=== PATIENT | male | born 1940 | race Caucasian/White ===

== ENCOUNTER 2017-11-03 14:37 | Emergency (ER) | payer MEDICARE, BC ==
[2017-11-03] MEDS ORDERED: LIDOCAINE VISC 2% 200MG/10ML UD MM ONE (14:58)
--- NOTE | 2017-11-03 16:54 | Emergency Department Record ---
History of Present Illness - General Chief complaint: Nosebleed/epistaxis Stated complaint: NOSE BLEED Time Seen by Provider: 11/03/17 14:58 Source: Patient Mode of Arrival: Ambulatory Limitations: No limitations - History of Present Illness Initial comments: pt had a nosebleed that has now stopped complaint: Other (epistaxis) Onset/Timin -: Hour(s) Location: Nose Severity: Moderate Improves with: None Worsens with: None - Related Data Home Medications Medication Instructions Recorded Confirmed Last Taken Metoprolol Succinate [Toprol Xl] 25 mg PO DAILY 11/03/17 11/03/17 Unknown Allergies Allergy/AdvReac Type Severity Reaction Status Date / Time hydrocodone bitartrate AdvReac Intermediate BEHAVIORAL Verified 11/03/17 14:49 [From Vicodin] CHANGES Travel Screening - Travel/Exposure Within Last 30 Days Have you traveled within the last 30 days?: No Review of Systems Reviewed: No additional complaints except as noted below Constitutional: Reports: As per HPI. Denies: Chills, Fever, Malaise, Night sweats, Weakness, Weight change Eyes: Reports: As per HPI. Denies: Eye discharge, Eye pain, Photophobia, Vision change ENT: Reports: As per HPI. Denies: Congestion, Dental pain, Ear pain, Epistaxis , Hearing loss, Throat pain Respiratory: Reports: As per HPI. Denies: Cough, Dyspnea, Hemoptysis, Stridor, Wheezes Cardiovascular: Reports: As per HPI. Denies: Arrhythmia, Chest pain, Dyspnea on exertion, Edema, Murmurs, Orthopnea, Palpitations, Paroxysmal nocturnal dyspnea, Rheumatic Fever, Syncope Endocrine: Reports: As per HPI. Denies: Fatigue, Heat or cold intolerance, Polydipsia, Polyuria Gastrointestinal: Reports: As per HPI. Denies: Abdominal pain, Constipation, Diarrhea, Hematemesis, Hematochezia, Melena, Nausea, Vomiting Genitourinary: Reports: As per HPI. Denies: Dysuria, Frequency, Hematuria, Incontinence, Retention, Testicular pain, Testicular mass, Urgency Musculoskeletal: Reports: As per HPI. Denies: Arthralgia, Back pain, Gout, Joint swelling, Myalgia, Neck pain Skin: Reports: As per HPI. Denies: Bruising, Change in color, Change in hair/ nails, Lesions, Pruritus, Rash Neurological: Reports: As per HPI. Denies: Abnormal gait, Confusion, Headache, Numbness, Paresthesias, Seizure, Tingling, Tremors, Vertigo, Weakness Psychiatric: Reports: As per HPI. Denies: Anxiety, Auditory hallucinations, Depression, Homicidal thoughts, Suicidal thoughts, Visual hallucinations Hematological/Lymphatic: Reports: As per HPI. Denies: Anemia, Blood Clots, Easy bleeding, Easy bruising, Swollen glands Past Medical History - SOCIAL HISTORY Smoking Status: Former smoker Alcohol Use: None Drug Use: None - RESPIRATORY Hx Respiratory Disorders: No - CARDIOVASCULAR Hx Cardio Disorders: Yes Hx Hypertension: Yes Comment:: high cholesterol - NEURO Hx Neuro Disorders: No - GI Hx GI Disorders: Yes Comment:: gastroporesis - Hx Genitourinary Disorders: Yes Hx Kidney Stones: Yes - ENDOCRINE Hx Endocrine Disorders: No Hx Diabetes: No Hx Thyroid Disease: No - MUSCULOSKELETAL Hx Musculoskeletal Disorders: No - PSYCH Hx Psych Problems: No - HEMATOLOGY/ONCOLOGY Hx Hematology/Oncology Disorders: No Family Medical History Any Significant Family History?: Yes Hx Cancer: Mother, Brother/Sister Hx Diabetes: Brother/Sister Hx Stroke: Father, Brother/Sister Physical Exam - General General Appearance: Alert, Oriented x3, Cooperative, Mild distress - Head Head exam: Normal inspection - Eye Eye exam: Normal appearance, PERRL, EOMI Pupils: Normal accommodation - ENT ENT exam: Normal exam, Mucous membranes moist, Normal external ear exam, Normal orophraynx Ear exam: Normal external inspection. negative: External canal tenderness Nasal Exam: Discharge, Dried blood. negative: Sinus tenderness Mouth exam: Normal external inspection, Tongue normal Teeth exam: Normal inspection. negative: Dental caries Throat exam: Normal inspection. negative: Tonsillar erythema, Tonsillar exudate - Neck Neck exam: Normal inspection, Full ROM. negative: Tenderness - Respiratory Respiratory exam: Normal lung sounds bilaterally. negative: Respiratory distress - Cardiovascular Cardiovascular Exam: Regular rate, Normal rhythm, Normal heart sounds - GI/Abdominal GI/Abdominal exam: Soft, Normal bowel sounds. negative: Tenderness - Rectal Rectal exam: Deferred - exam: Deferred - Extremities Extremities exam: Normal inspection, Full ROM, Normal capillary refill. negative: Tenderness - Back Back exam: Reports: Normal inspection, Full ROM. Denies: Muscle spasm, Rash noted, Tenderness - Neurological Neurological exam: Alert, CN II-XII intact, Normal gait, Oriented X3 - Psychiatric Psychiatric exam: Normal affect, Normal mood - Skin Skin exam: Dry, Intact, Normal color, Warm Course Vital Signs 11/03/17 14:47 Temperature 98.2 F Pulse Rate 70 Respiratory 20 Rate Blood Pressure 129/87 Pulse Ox 96 - Reevaluation(s) Reevaluation #1: 11/03/17 16:57 bleeding point in kisselbachs plexus cauterized w silver nitrate Disposition Disposition: Discharge Clinical Impression: Anterior epistaxis Disposition: Home, Self-Care Condition: (1) Good Instructions: Nosebleed (ED) Additional Instructions: follow up with family doctor. return sooner if worse. do not pick or blow nose. humidify house. Quality - Quality Measures Quality Measures: N/A - Blood Pressure Screening Does Patient Have Any of the Following: No Blood Pressure Classification: Pre-Hypertensive BP Reading Systolic Measurement: 129 Diastolic Measurement: 87 Screening for High Blood Pressure: < Pre-Hypertensive BP, F/U Documented > [ G8950] Pre-Hypertensive Follow-up Interventions: Follow-up with rescreen every year.
== END 2017-11-03 17:16 | disposition home or self-care (01) ==
LOC: ER 14:37
DX: R04.0 Epistaxis (principal)
CPT/HCPCS: 30901; 99283

== ENCOUNTER 2017-11-06 18:15 | Emergency (ER) | payer MEDICARE, BC ==
[2017-11-06] MEDS ORDERED: TOPICAL LIDOCAINE W/ EPI 5 ML TOP ONE (18:41)
--- NOTE | 2017-11-06 18:47 | Emergency Department Record ---
History of Present Illness - General Chief complaint: Nosebleed/epistaxis Stated complaint: NOSE BLEED Time Seen by Provider: 11/06/17 18:41 Source: Patient Mode of Arrival: Ambulatory Limitations: No limitations - History of Present Illness Initial comments: 77 yo male presents with left sided nose bleed. The patient had the left side cauterized on Monday in the ER. No packing was placed. No anticoagulation currently. The bleeding returned about 6pm today. No other current symptoms. MD complaint: Epistaxis Onset/Timin -: Minutes(s) Location: Nose Severity: Moderate Consistency: Intermittent Improves with: None Worsens with: None - Related Data Previous Rx's Medication Instructions Recorded Cephalexin [Keflex] 500 mg PO TID #9 cap 11/06/17 Allergies Allergy/AdvReac Type Severity Reaction Status Date / Time hydrocodone bitartrate AdvReac Intermediate BEHAVIORAL Verified 11/06/17 18:30 [From Vicodin] CHANGES Travel Screening - Travel/Exposure Within Last 30 Days Have you traveled within the last 30 days?: No Review of Systems Constitutional: Denies: Chills, Fever, Malaise, Weakness Eyes: Denies: Eye discharge ENT: Reports: Epistaxis. Denies: Congestion, Dental pain, Ear pain, Hearing loss, Throat pain Respiratory: Denies: Cough, Dyspnea Cardiovascular: Denies: Chest pain, Syncope Endocrine: Denies: Fatigue Gastrointestinal: Denies: Abdominal pain, Diarrhea, Nausea, Vomiting Genitourinary: Denies: Dysuria, Frequency, Hematuria Musculoskeletal: Denies: Arthralgia, Back pain, Myalgia Skin: Denies: Bruising, Change in color, Rash Neurological: Denies: Confusion, Headache, Weakness Psychiatric: Denies: Anxiety Hematological/Lymphatic: Denies: Blood Clots, Easy bleeding, Easy bruising, Swollen glands Past Medical History - SOCIAL HISTORY Smoking Status: Former smoker Alcohol Use: None Drug Use: None - RESPIRATORY Hx Respiratory Disorders: No - CARDIOVASCULAR Hx Cardio Disorders: Yes Hx Hypertension: Yes Comment:: high cholesterol - NEURO Hx Neuro Disorders: No - GI Hx GI Disorders: Yes Comment:: gastroporesis - Hx Genitourinary Disorders: Yes Hx Kidney Stones: Yes - ENDOCRINE Hx Endocrine Disorders: No Hx Diabetes: No Hx Thyroid Disease: No - MUSCULOSKELETAL Hx Musculoskeletal Disorders: No - PSYCH Hx Psych Problems: No - HEMATOLOGY/ONCOLOGY Hx Hematology/Oncology Disorders: No Family Medical History Any Significant Family History?: Yes Hx Cancer: Mother, Brother/Sister Hx Diabetes: Brother/Sister Hx Stroke: Father, Brother/Sister Physical Exam - General General Appearance: Alert, Oriented x3, Cooperative, No acute distress Limitations: No limitations - Head Head exam: Normal inspection - Eye Eye exam: Normal appearance, PERRL. negative: Periorbital swelling, Scleral icterus - ENT ENT exam: Mucous membranes moist, Normal orophraynx Ear exam: Normal external inspection Nasal Exam: Active bleeding (minimal), Dried blood Mouth exam: Normal external inspection Teeth exam: Normal inspection - Neck Neck exam: Normal inspection, Full ROM. negative: Tenderness - Respiratory Respiratory exam: Normal lung sounds bilaterally. negative: Respiratory distress - Cardiovascular Cardiovascular Exam: Regular rate, Normal rhythm, Normal heart sounds - GI/Abdominal GI/Abdominal exam: Soft - Rectal Rectal exam: Deferred - exam: Deferred - Neurological Neurological exam: Alert, Oriented X3 - Psychiatric Psychiatric exam: Normal affect, Normal mood - Skin Skin exam: Dry, Intact, Normal color, Warm Course Vital Signs 11/06/17 18:28 Temperature 97.8 F Pulse Rate 64 Respiratory 18 Rate Blood Pressure 149/75 Pulse Ox 95 - Reevaluation(s) Reevaluation #1: The left nostril was examined Minimal bleeding with some dry blood TLE with soaked cotton placed with no bleeding 11/06/17 18:58 11/06/17 19:20 The TLE was revoved A 4cm Merocel sponge was placed without bleeding He tolerated this well DC to follow up tomorrow with his PCP Recommend ENT follow up given he recurrent bleeding Disposition Disposition: Discharge Clinical Impression: Anterior epistaxis Disposition: Home, Self-Care Condition: (1) Good Instructions: Nosebleed (ED) Additional Instructions: Follow up tomorrow as schedule with your doctor Discuss and ENt follow up for the recurrent bleeding Return if you have pain, bleeding or short of breath or any new concerns. The packing should be removed in 3-4 days Prescriptions: Cephalexin [Keflex] 500 mg PO TID #9 cap Forms: Patient Portal Access Time of Disposition: 19:21 Quality - Quality Measures Quality Measures: N/A - Blood Pressure Screening Does Patient Have Any of the Following: No Blood Pressure Classification: Hypertensive Reading Systolic Measurement: 149 Diastolic Measurement: 75 Screening for High Blood Pressure: < Pre-Hypertensive BP, F/U Documented > [ G8950] Pre-Hypertensive Follow-up Interventions: Referral to alternative/primary care provider.
[2017-11-06] MEDS ORDERED: CEPHALEXIN 500 MG CAPSULE PO STA (19:21)
== END 2017-11-06 19:31 | disposition home or self-care (01) ==
LOC: ER 18:15
DX: R04.0 Epistaxis (principal); I10 Essential (primary) hypertension; Z87.891 Personal history of nicotine dependence
CPT/HCPCS: 30901; 99283

== ENCOUNTER 2017-11-07 18:16 | Observation (INO) | payer MEDICARE, BC ==
--- NOTE | 2017-11-07 19:06 | Emergency Department Record ---
History of Present Illness - General Stated complaint: NOSE BLEED Time Seen by Provider: 11/07/17 19:01 Source: Patient Mode of Arrival: Ambulatory Limitations: No limitations - History of Present Illness Initial comments: 77 yo male returns to ED for evaluation of recurrent epistaxis symptoms following cautery 4 days ago and anterior packing placed last night. Patient reports that he riggs to have bleeding into the posterior pharynx this evening but his bleeding has now stopped. Patient denies bleeding anteriorly from the packing, denies fevers, chills, or recent illness. Patient denies the use of anticoagulation medications, and reports that he is currently taking antibiotics while his packing is in place. MD complaint: Epistaxis Onset/Timin -: Days(s) Severity: Mild Consistency: Intermittent Improves with: Other (pinching of the nose) Worsens with: None - Related Data Previous Rx's Medication Instructions Recorded Cephalexin [Keflex] 500 mg PO TID #9 cap 11/06/17 Allergies Allergy/AdvReac Type Severity Reaction Status Date / Time hydrocodone bitartrate AdvReac Intermediate BEHAVIORAL Verified 11/06/17 18:30 [From Vicodin] CHANGES Review of Systems Constitutional: Denies: Chills, Fever, Malaise, Night sweats Eyes: Denies: Eye discharge, Eye pain ENT: Reports: Epistaxis. Denies: Congestion Respiratory: Denies: Cough, Dyspnea Cardiovascular: Denies: Chest pain, Dyspnea on exertion Endocrine: Denies: Fatigue, Heat or cold intolerance Gastrointestinal: Denies: Abdominal pain, Constipation, Vomiting Genitourinary: Denies: Incontinence, Retention Musculoskeletal: Denies: Arthralgia, Back pain, Gout, Joint swelling Skin: Denies: Bruising, Change in color Neurological: Denies: Abnormal gait, Confusion, Headache, Tingling Psychiatric: Denies: Anxiety Hematological/Lymphatic: Denies: Anemia, Blood Clots Past Medical History - SOCIAL HISTORY Smoking Status: Former smoker Drug Use: None - RESPIRATORY Hx Respiratory Disorders: No - CARDIOVASCULAR Hx Cardio Disorders: Yes Hx Hypertension: Yes Comment:: high cholesterol - NEURO Hx Neuro Disorders: No - GI Hx GI Disorders: Yes Comment:: gastroporesis - Hx Genitourinary Disorders: Yes Hx Kidney Stones: Yes - ENDOCRINE Hx Endocrine Disorders: No Hx Diabetes: No Hx Thyroid Disease: No - MUSCULOSKELETAL Hx Musculoskeletal Disorders: No - PSYCH Hx Psych Problems: No - HEMATOLOGY/ONCOLOGY Hx Hematology/Oncology Disorders: No Family Medical History Hx Cancer: Mother, Brother/Sister Hx Diabetes: Brother/Sister Hx Stroke: Father, Brother/Sister Physical Exam - General General Appearance: Alert, Oriented x3, Cooperative, No acute distress Limitations: No limitations - Head Head exam: Atraumatic, Normocephalic, Normal inspection Head exam detail: negative: Abrasion, Contusion, Nguyen's sign, General tenderness, Hematoma, Laceration - Eye Eye exam: Normal appearance. negative: Conjunctival injection, Periorbital swelling, Periorbital tenderness, Scleral icterus - ENT Ear exam: negative: Auricular hematoma, Auricular trauma Nasal Exam: Other (packing in place to the left nare without active bleeding, mild dried blood to the posterior pharynx on examination.). negative: Active bleeding, Discharge, Dried blood, Foreign body Mouth exam: Tongue normal. negative: Drooling, Laceration, Muffled voice, Tongue elevation - Neck Neck exam: Normal inspection. negative: Meningismus, Tenderness - Respiratory Respiratory exam: Normal lung sounds bilaterally. negative: Respiratory distress, Rhonchi, Stridor, Wheezes - Cardiovascular Cardiovascular Exam: Regular rate, Normal rhythm, Normal heart sounds - GI/Abdominal GI/Abdominal exam: Soft. negative: Rebound, Rigid, Tenderness - Rectal Rectal exam: Deferred - exam: Deferred - Extremities Extremities exam: Normal inspection. negative: Pedal edema, Tenderness - Back Back exam: Denies: CVA tenderness (R), CVA tenderness (L) - Neurological Neurological exam: Alert, Normal gait, Oriented X3 - Psychiatric Psychiatric exam: Normal affect, Normal mood - Skin Skin exam: Normal color. negative: Abrasion Type of lesion: negative: abrasion Course - Reevaluation(s) Reevaluation #1: 11/07/17 19:04 Patient was seen and examined, anterior packing is in place with no active bleeding present. Offered to remove his packing and place balloon pack in place , patient declined as this form of packing is likely to be less comfortable than his current packing. Will observe in ED for recurrent bleeding symptoms. Reevaluation #2: 11/07/17 19:47 Patient reassessed, reports that his bleeding is continuing intermittently. Balloon packing placed, and following discussion with the patient, will admit for observation with consultation with Dr. Valadez in the morning. Procedure Note: Previous anterior packing was removed without complications, bleeding still present to the septum right nare, balloon packing was inserted using surgilube without complications. Balloon was inflated to 3 mL as the patient was uncomfortable with nay further inflation. Reevaluation #3: 11/07/17 20:16 Case was discussed with Homa Dickinson, will accept admission at this time. Medical Decision Making - Lab Data Result diagrams: 11/07/17 20:00 11/07/17 20:00 Disposition Disposition: Admit Clinical Impression: Anterior epistaxis Disposition: Still a Patient at [facility] Decision to Admit: Admit from ER Decision to Admit Date: 11/07/17 Decision to Admit Time: 19:47 Condition: (2) Stable Time of Disposition: 19:47 Quality - Quality Measures Quality Measures: N/A - Blood Pressure Screening Does Patient Have Any of the Following: Active Dx of HTN Blood Pressure Classification: Hypertensive Reading Systolic Measurement: 162 Diastolic Measurement: 91 Screening for High Blood Pressure: Patient Exclusion, Hx of HTN [G9744]
[2017-11-07] MEDS ORDERED: MORPHINE SULFATE 5 MG/ML PFS IVP ONE ×2 (19:46)
[2017-11-07] MEDS ORDERED: ONDANSETRON HCL IV 4 MG/2 ML VIAL IVP ONE ×2 (19:46)
[2017-11-07 20:08] LABS: HEMATOCRIT 39.9 % (42.0-52.0); HEMOGLOBIN 13.7 gm/dl (14.0-18.0); MEAN CELL VOLUME 89.5 fl (81-97); MEAN CORPUSCULAR HEMOGLOBIN 30.7 pg (27-33); MEAN CORPUSCULAR HGB CONC 34.3 g/dl (32-36); MEAN PLATELET VOLUME 10.3 fl (7.4-10.4); PLATELET COUNT 182 K/uL (130-400); RED BLOOD COUNT 4.46 M/uL (4.40-5.70); RED CELL DISTRIBUTION WIDTH 12.8 % (11.5-14.5); WHITE BLOOD COUNT W/O DIFF 8.1 K/uL (4.2-12.2)
[2017-11-07 20:21] LABS: BLOOD UREA NITROGEN 22 mg/dL (8-23); CREATININE 1.1 mg/dL (0.7-1.2); EST GLOMERULAR FILTRATION RATE > 60 mL/min
[2017-11-07 20:22] LABS: TOTAL PROTEIN 7.2 g/dL (6.6-8.7)
[2017-11-07 20:23] LABS: GLUCOSE,RANDOM 153 mg/dL (74-109)
[2017-11-07 20:26] LABS: ALB/GLOB RATIO 1.7 (1.1-1.8); ALBUMIN 4.5 g/dL (4.0-5.0); ALKALINE PHOSPHATASE 61 U/L (40-129); ALT/SGPT 16 U/L (<41); AST/SGOT 20 U/L (10.0-50.0)
[2017-11-07] MEDS ORDERED: 0.9 % SODIUM CHLORIDE 1000ML 1,000 ML IV PRN (21:13)
[2017-11-07] MEDS ORDERED: ONDANSETRON HCL IV 4 MG/2 ML VIAL IVP PRN (21:13)
[2017-11-07] MEDS ORDERED: TRANEXAMIC ACID 1,000 MG/10 ML ML TOP ONE (21:29)
[2017-11-07] MEDS: CEPHALEXIN 500 MG CAPSULE PO SCH (21:51)
[2017-11-07] MEDS ORDERED: SIMVASTATIN 20 MG TABLET PO SCH (22:00)
[2017-11-08] MEDS: MORPHINE SULFATE 5 MG/ML PFS IVP PRN ×2 (06:26→10:47)
[2017-11-08] MEDS ORDERED: PANTOPRAZOLE SODIUM 40 MG TABLET PO SCH (07:00)
[2017-11-08] MEDS ORDERED: METOPROLOL SUCC 25 MG TAB.ER PO SCH (10:00)
[2017-11-08] MEDS ORDERED: ASPIRIN 81 MG CHEWABLE TABLET PO SCH (10:00)
[2017-11-08] MEDS ORDERED: LISINOPRIL 20 MG TABLET PO SCH (10:00)
[2017-11-08] MEDS ORDERED: ALLOPURINOL 100 MG TAB PO SCH (10:00)
--- NOTE | 2017-11-08 10:28 | History & Physical ---
History of Present Illness - Date of Service Date of Service for History & Physical: 11/08/17 - History of Present Illness Admitting Diagnosis: Anterior epistaxis-recurrent History of Present Illness: 77yo male with CC of recurrent nose bleeds. He has a history of HTN, high cholesterol, kidney stones and was a former smoker. Patient has been to the [facility] ED 3 times now for recurrent nosebleeds. His first visit on 11/03 he was diagnosed with left anterior bleed which was cauterized with silver nitrate and had successful coagulation. He had recurrence of the nose bleed on 11/06 and had merocel sponge placed and was started on keflex 500mg po tid. He says he went home that night and noted the bleeding started back up so he returned. While in the ED last night, patient was noted to have left sided anterior bleed. Merocel sponge was in place. This was removed and balloon pack inflated to 3ml was placed and bleeding was stopped. His hgb was 13.7. He was admitted for observation with ENT, Dr. Valadez, was consulted. 11/08/17- Patient reports that he has not had any further bleeding from his nose since the balloon pack was placed last evening. He denies taking any prescription blood thinners but does take a baby aspirin daily and sometimes takes otc pain relievers. He is not sure if they are NSAIDs or tylenol. He says prior to these episodes he has not had any issues with nosebleeds. He denies recent trauma, use of nasal sprays. He had turned his furnace on but did not have the humidifier on when this started. He has since turned that on and purchased an additional humidifier for his bedroom. He says that his blood pressure has been well controlled. His only other active problem is cataracts which he is scheduled to have surgery on in 2 weeks. He is a [employer] and has had several performances this month. pcp: [facility] Travel Screening - Travel/Exposure Within Last 30 Days Have you traveled within the last 30 days?: Yes Location Detail:: [place] - Travel/Exposure Within Last Year Have you traveled outside the [place] in the last year?: No - Additonal Travel Details Have you been exposed to anyone with a communicable illness?: No - Travel Symptoms Symptom Screening: None Review of Systems Constitutional: Denies: Chills, Fever, Malaise, Night sweats Eyes: Denies: Eye discharge, Eye pain ENT: Reports: Epistaxis. Denies: Congestion Respiratory: Denies: Cough, Dyspnea Cardiovascular: Denies: Chest pain, Dyspnea on exertion Endocrine: Denies: Fatigue, Heat or cold intolerance Gastrointestinal: Denies: Abdominal pain, Constipation, Vomiting Genitourinary: Denies: Incontinence, Retention Musculoskeletal: Denies: Arthralgia, Back pain, Gout, Joint swelling Skin: Denies: Bruising, Change in color Neurological: Denies: Abnormal gait, Confusion, Headache, Tingling Psychiatric: Denies: Anxiety Hematological/Lymphatic: Denies: Anemia, Blood Clots Past Medical History - SOCIAL HISTORY Smoking Status: Former smoker Drug Use: None - RESPIRATORY Hx Respiratory Disorders: No - CARDIOVASCULAR Hx Cardio Disorders: Yes Hx Hypertension: Yes Comment:: high cholesterol - NEURO Hx Neuro Disorders: No - GI Hx GI Disorders: Yes Comment:: gastroporesis - Hx Genitourinary Disorders: Yes Hx Kidney Stones: Yes - ENDOCRINE Hx Endocrine Disorders: No Hx Diabetes: No Hx Thyroid Disease: No - MUSCULOSKELETAL Hx Musculoskeletal Disorders: No - PSYCH Hx Psych Problems: No - HEMATOLOGY/ONCOLOGY Hx Hematology/Oncology Disorders: No Family Medical History Hx Cancer: Mother, Brother/Sister Hx Diabetes: Brother/Sister Hx Stroke: Father, Brother/Sister H&P Meds/Allergies - Allergies Allergies: Allergies Allergy/AdvReac Type Severity Reaction Status Date / Time hydrocodone bitartrate AdvReac Intermediate BEHAVIORAL Verified 11/06/17 18:30 [From Vicodin] CHANGES - Home Medications Previous Rx's Medication Instructions Recorded Cephalexin [Keflex] 500 mg PO TID #9 cap 11/06/17 - Active Medications Active Medications: Current Medications Allopurinol (Zyloprim) [address] [facility] Aspirin (Aspirin Chewable) [address] [facility] Cephalexin HCl (Keflex) [address] [facility] Stop: 11/17/17 22:01 Last Admin: 11/07/17 21:51 Dose: 500 mg Sodium Chloride () 1,000 mls @ 15 mls/hr IV .Q24H PRN PRN Reason: LARGE VOLUME IV Lisinopril (Zestril) [address] [facility] Metoprolol Succinate (Toprol Xl) [address] [facility] Morphine Sulfate (Morphine Sulfate) 5 mg IVP Q4H PRN PRN Reason: Pain - Moderate (5-7) Stop: 11/14/17 21:14 Last Admin: 11/08/17 06:26 Dose: 5 mg Ondansetron HCl (Zofran) 4 mg IVP Q4H PRN PRN Reason: NAUSEA Pantoprazole Sodium (Protonix) [address] [facility] Last Admin: 11/08/17 06:24 Dose: 40 mg Simvastatin (Zocor) [address] [facility] Last Admin: 11/07/17 21:50 Dose: 80 mg Physical Exam - Vital Signs Vital Signs: Vital Signs - Last 24 Hrs Temp Pulse Resp BP Pulse Ox 11/08/17 09:57 91 L 11/08/17 05:13 97.9 F 65 18 138/82 94 L 11/07/17 21:13 98.0 F 69 18 150/88 96 - General General Appearance: Alert, Oriented x3, Cooperative, No acute distress Limitations: No limitations - Head Head exam: Atraumatic, Normocephalic, Normal inspection Head exam detail: negative: Abrasion, Contusion, Nguyen's sign, General tenderness, Hematoma, Laceration - Eye Eye exam: Normal appearance. negative: Conjunctival injection, Periorbital swelling, Periorbital tenderness, Scleral icterus - ENT Ear exam: negative: Auricular hematoma, Auricular trauma Nasal Exam: Other (packing in place to the left nare without active bleeding and balloon pack in place, mild dried blood to the posterior pharynx on examination.). negative: Active bleeding, Discharge, Dried blood, Foreign body Mouth exam: Tongue normal. negative: Drooling, Laceration, Muffled voice, Tongue elevation - Neck Neck exam: Normal inspection. negative: Meningismus, Tenderness - Respiratory Respiratory exam: Normal lung sounds bilaterally. negative: Respiratory distress, Rhonchi, Stridor, Wheezes - Cardiovascular Cardiovascular Exam: Regular rate, Normal rhythm, Systolic murmur (chronic) - GI/Abdominal GI/Abdominal exam: Soft. negative: Rebound, Rigid, Tenderness - Rectal Rectal exam: Deferred - exam: Deferred - Extremities Extremities exam: Normal inspection. negative: Pedal edema, Tenderness - Back Back exam: Denies: CVA tenderness (R), CVA tenderness (L) - Neurological Neurological exam: Alert, Normal gait, Oriented X3 - Psychiatric Psychiatric exam: Normal affect, Normal mood - Skin Skin exam: Normal color. negative: Abrasion Type of lesion: negative: abrasion Results - Labs Result Diagrams: 11/07/17 20:00 11/07/17 20:00 VTE H&P Assessment - Risk for VTE Risk for VTE: Yes Risk Level: High Risk Assessment Date: 11/08/17 Risk Assessment Time: 11:00 VTE Orders Placed or Will Be Placed: No VTE Reason for No Prophylaxis: Contraindicated (active bleeding) Plan - Detailed Diagnosis and Plan (1) Anterior epistaxis Current Visit: Yes Status: Acute Base Code: R04.0 - EPISTAXIS Comment: - no bleeding since balloon pack was placed. ED physician read specialty clinic schedule incorrectly and Dr. Valadez is not out to [facility] today. I have spoke with one of his nurses and I left him a message. She is going back to his office today at 1pm and will see him. She is going to have him call me to see if we can get something set up as an outpatient. Balloon pack ok to stay in for up to 3 days. -continue keflex 500mg po tid -hold asa and nsaids (2) DVT prophylaxis Current Visit: Yes Status: Acute Base Code: [id number] - Comment: 11/08/17- contraindicated with active bleeding (3) Full code status Current Visit: Yes Status: Acute Base Code: Z78.9 - OTHER SPECIFIED HEALTH STATUS Comment: 11/08/17- patient is full code
[2017-11-08] MEDS: CEPHALEXIN 500 MG CAPSULE PO SCH (10:53)
--- NOTE | 2017-11-08 12:57 | Discharge Summary ---
Providers Discharge Summary Date: 11/08/17 Date of admission: 11/07/17 21:05 Expected Date of Discharge: 11/08/17 Attending physician: Ricardo East Primary care physician: LOR TRAMMELL M.D. Physical Exam - Vital Signs Vital Signs: Vital Signs - Last 24 Hrs Temp Pulse Resp BP Pulse Ox 11/08/17 10:45 98.8 F 76 16 137/71 96 11/08/17 09:57 91 L 11/08/17 05:13 97.9 F 65 18 138/82 94 L 11/07/17 21:13 98.0 F 69 18 150/88 96 - General General Appearance: Alert, Oriented x3, Cooperative, No acute distress Limitations: No limitations - Head Head exam: Atraumatic, Normocephalic, Normal inspection Head exam detail: negative: Abrasion, Contusion, Nguyen's sign, General tenderness, Hematoma, Laceration - Eye Eye exam: Normal appearance. negative: Conjunctival injection, Periorbital swelling, Periorbital tenderness, Scleral icterus - ENT Ear exam: negative: Auricular hematoma, Auricular trauma Nasal Exam: Other (packing in place to the left nare without active bleeding and balloon pack in place, mild dried blood to the posterior pharynx on examination.). negative: Active bleeding, Discharge, Dried blood, Foreign body Mouth exam: Tongue normal. negative: Drooling, Laceration, Muffled voice, Tongue elevation - Neck Neck exam: Normal inspection. negative: Meningismus, Tenderness - Respiratory Respiratory exam: Normal lung sounds bilaterally. negative: Respiratory distress, Rhonchi, Stridor, Wheezes - Cardiovascular Cardiovascular Exam: Regular rate, Normal rhythm, Systolic murmur (chronic) - GI/Abdominal GI/Abdominal exam: Soft. negative: Rebound, Rigid, Tenderness - Rectal Rectal exam: Deferred - exam: Deferred - Extremities Extremities exam: Normal inspection. negative: Pedal edema, Tenderness - Back Back exam: Denies: CVA tenderness (R), CVA tenderness (L) - Neurological Neurological exam: Alert, Normal gait, Oriented X3 - Psychiatric Psychiatric exam: Normal affect, Normal mood - Skin Skin exam: Normal color. negative: Abrasion Type of lesion: negative: abrasion Hospitalization - Hospitalization Admission Diagnosis: Anterior epistaxis-recurrent - Problem List/Discharge Diagnosis (1) Anterior epistaxis Status: Acute Base Code: R04.0 - EPISTAXIS Comment: 11/08/17- no bleeding since balloon pack was placed 11/07. I spoke with Dr. Valadez, and his recommendation is to keep the balloon packing in place for at least 3 days before removal. He woud like patient to continue on antibiotics while this is in place. He had recommended patient return to the ED to have balloon deflated and follow up in the office with him next week. He recommended once balloon is deflated that patient place a small cotton ball with neosporin into the nare for one hour daily. After discussing this plan with patient, patient then tells me he actually has an appointment set up with [facility] ENT on 11/10. -will plan to discharge home today with balloon pack in place to be removed . I spoke with Dr. Urbina and updated him regarding this information. -continue keflex 500mg po tid new script sent over to pharmacy -hold asa and nsaids -return to ED for any recurrent bleeding, severe pain, fever, or purulent discharge. Patient voiced his understanding of this. (2) DVT prophylaxis Status: Acute Base Code: [id number] - Comment: 11/08/17- contraindicated with active bleeding (3) Full code status Status: Acute Base Code: Z78.9 - OTHER SPECIFIED HEALTH STATUS Comment: - patient is full code - Hospitalization Course Disposition: Home, Self-Care Hospital Course: 77yo male with CC of recurrent nose bleeds. He has a history of HTN, high cholesterol, kidney stones and was a former smoker. Patient has been to the [facility] ED 3 times now for recurrent nosebleeds. His first visit on 11/03 he was diagnosed with left anterior bleed which was cauterized with silver nitrate and had successful coagulation. He had recurrence of the nose bleed on 11/06 and had merocel sponge placed and was started on keflex 500mg po tid. He says he went home that night and noted the bleeding started back up so he returned. While in the ED last night, patient was noted to have left sided anterior bleed. Merocel sponge was in place. This was removed and balloon pack inflated to 3ml was placed and bleeding was stopped. His hgb was 13.7. He was admitted for observation with ENT, Dr. Valadez, was consulted. 11/08/17- Patient reports that he has not had any further bleeding from his nose since the balloon pack was placed last evening. He denies taking any prescription blood thinners but does take a baby aspirin daily and sometimes takes otc pain relievers. He is not sure if they are NSAIDs or tylenol. He says prior to these episodes he has not had any issues with nosebleeds. He denies recent trauma, use of nasal sprays. He had turned his furnace on but did not have the humidifier on when this started. He has since turned that on and purchased an additional humidifier for his bedroom. He says that his blood pressure has been well controlled. His only other active problem is cataracts which he is scheduled to have surgery on in 2 weeks. He is a [employer] and has had several performances this month. Condition at Discharge: (2) Stable Discharge Medications - Discharge Medications Prescriptions: Acetaminophen with Codeine [Tylenol with Codeine #3 Tablet] 1 each PO Q6HR #15 tablet Cephalexin [Keflex] 500 mg PO TID #9 cap Home Medications: Ambulatory Orders Allopurinol [Zyloprim] 300 mg PO DAILY 07/27/14 [Last Taken 03/04/16] Pantoprazole Sodium [Protonix] 40 mg PO BID 07/27/14 [Last Taken 03/04/16] Lisinopril 20 mg PO DAILY 03/04/16 [Last Taken 03/04/16] Simvastatin [Zocor] 80 mg PO DAILY 03/04/16 [Last Taken 03/04/16] Metoprolol Succinate [Toprol Xl] 25 mg PO DAILY 11/03/17 [Last Taken Unknown] Acetaminophen with Codeine [Tylenol with Codeine #3 Tablet] 1 each PO Q6HR #15 tablet 11/08/17 [Last Taken Unknown] Cephalexin [Keflex] 500 mg PO TID #9 cap 11/08/17 [Last Taken Unknown] Discharge Plan - Discharge Instructions Activity at Discharge: Resume Usual Activities As Tolerated Diet at Discharge: Regular Diet Instructions: Nosebleed (ED) Additional Instructions: Follow up on Monday with [facility]NT as scheduled Continue keflex 500mg by mouth three times daily. Take your next dose this evening May use tylenol #3 every 6 hours as needed for pain Return to the ED if you begin to have return of your bleeding, increasing pain, or drainage. I would recommend that you be seen in an ED that has an ENT provider foundation relations director such as [facility]. Please call with any questions or concerns Quality Measures - Quality Measures Quality Measures: Advance Directives, Documentation of Current Medications in Medical Record, Elder Maltreatment Screen and Follow-Up Plan, Screening for High Blood Pressure and F/U Documented - Current Medications Quality Measure: Measure #130: Documentation of Current Medications Documentation of Current Medications: <Current Medications Documented/Reviewed> [G3091] - Blood Pressure Screening Quality Measure: Screening for High Blood Pressure and Follow-Up Documented Does Patient Have Any of the Following: Active Dx of HTN Blood Pressure Classification: Pre-Hypertensive BP Reading Systolic Measurement: 137 Diastolic Measurement: 71 Screening for High Blood Pressure: Patient Exclusion, Hx of HTN [G9744] - Advance Directives Quality Measure: Measure #47: Care Plan Advance Directives Established: No Advance Directives Information Provided To Patient: Already Provided Advance Directives on File: No Living Will: Yes Power of Anesthesiology Physician: Yes Power of Anesthesiology Physician Name: colin Advance Care Planning: <Care Plan/Decision Maker Documented; Discussed & Documented> [[id number]] - Elder Abuse Suspicion Index Screening: Elder Abuse Suspicion Index Screening Rely on people for bathing, dressing, shopping, banking, etc: No Prevented from getting food, clothes, medication, etc: No Made to feel shamed or threatened by someone: No Forced to sign papers or use money against will: No Feel afraid, touched in ways not wanted or hurt physically: No Poor eye contact, withdrawn, malnourished, cuts or bruises: No Screening Result: Negative result EASI Reference Information: Cristopher MORELOS, Megan C, Hao D, Ambreen Nieves.Development and validation of a tool to assist physicians identification of elder abuse: The Elder Abuse Suspicion Index (EASI ). Journal of Elder Abuse and Neglect, 2008; 20 (3): 276-300. - Elder Maltreatment Screen Quality Measures: Elder Maltreatment Screen and Follow-Up Plan Elder Maltreatment Screen: <Negative, No Follow-Up Plan Required> [G8734]
== END 2017-11-08 14:25 | disposition home or self-care (01) ==
LOC: ER 18:16 → MEDSURG 21:05
PROVIDERS: ADMIT Internal Medicine; ATTEND Internal Medicine
DX: R04.0 Epistaxis (principal)
CPT/HCPCS: 30901 ×2; 93041; 99285 ×2; 96374; 96375; 80053; 85027; 94760; G0378 ×2; J2405; J2270 ×2; J3490; 99220

== ENCOUNTER 2017-11-17 22:30 | Emergency (ER) | payer MEDICARE, BC ==
--- NOTE | 2017-11-17 23:46 | Emergency Department Record ---
History of Present Illness - General Chief complaint: Nosebleed/epistaxis Stated complaint: NOSE BLEED Time Seen by Provider: 11/17/17 23:34 Source: Patient Mode of Arrival: Ambulatory Limitations: No limitations - History of Present Illness Initial comments: pt here for the 4th time for epistaxis. he has been cauterix=zed by me and by ent, he has been hospitalized and he has been packed twice. he started bleeding again tonight. he also has been feeling weak. MD complaint: Epistaxis Onset/Timin -: Minutes(s) Location: Nose Severity: Mild Consistency: Intermittent, Now resolved Context-Epistaxis: History of similar - Related Data Previous Rx's Medication Instructions Recorded Acetaminophen with Codeine 1 each PO Q6HR #15 tablet 11/08/17 [Tylenol with Codeine #3 Tablet] Cephalexin [Keflex] 500 mg PO TID #9 cap 11/08/17 Amoxicillin/Potassium Clav 1 tab PO BID #14 tablet 11/18/17 [Augmentin 875Mg/125Mg] Hydrocodone/Acetaminophen [[place] 1 each PO Q6HR #7 tablet 11/18/17 5-325 Tablet] Allergies Allergy/AdvReac Type Severity Reaction Status Date / Time hydrocodone bitartrate AdvReac Intermediate BEHAVIORAL Verified 11/06/17 18:30 [From Vicodin] CHANGES Travel Screening - Travel/Exposure Within Last 30 Days Have you traveled within the last 30 days?: No Review of Systems Reviewed: No additional complaints except as noted below Constitutional: Reports: As per HPI. Denies: Chills, Fever, Malaise, Night sweats, Weakness, Weight change Eyes: Reports: As per HPI. Denies: Eye discharge, Eye pain, Photophobia, Vision change ENT: Reports: As per HPI. Denies: Congestion, Dental pain, Ear pain, Epistaxis , Hearing loss, Throat pain Respiratory: Reports: As per HPI. Denies: Cough, Dyspnea, Hemoptysis, Stridor, Wheezes Cardiovascular: Reports: As per HPI. Denies: Arrhythmia, Chest pain, Dyspnea on exertion, Edema, Murmurs, Orthopnea, Palpitations, Paroxysmal nocturnal dyspnea, Rheumatic Fever, Syncope Endocrine: Reports: As per HPI. Denies: Fatigue, Heat or cold intolerance, Polydipsia, Polyuria Gastrointestinal: Reports: As per HPI. Denies: Abdominal pain, Constipation, Diarrhea, Hematemesis, Hematochezia, Melena, Nausea, Vomiting Genitourinary: Reports: As per HPI. Denies: Dysuria, Frequency, Hematuria, Incontinence, Retention, Testicular pain, Testicular mass, Urgency Musculoskeletal: Reports: As per HPI. Denies: Arthralgia, Back pain, Gout, Joint swelling, Myalgia, Neck pain Skin: Reports: As per HPI. Denies: Bruising, Change in color, Change in hair/ nails, Lesions, Pruritus, Rash Neurological: Reports: As per HPI. Denies: Abnormal gait, Confusion, Headache, Numbness, Paresthesias, Seizure, Tingling, Tremors, Vertigo, Weakness Psychiatric: Reports: As per HPI. Denies: Anxiety, Auditory hallucinations, Depression, Homicidal thoughts, Suicidal thoughts, Visual hallucinations Hematological/Lymphatic: Reports: As per HPI. Denies: Anemia, Blood Clots, Easy bleeding, Easy bruising, Swollen glands Past Medical History - SOCIAL HISTORY Smoking Status: Former smoker Alcohol Use: None Drug Use: None - RESPIRATORY Hx Respiratory Disorders: No - CARDIOVASCULAR Hx Cardio Disorders: Yes Hx Hypertension: Yes Comment:: high cholesterol - NEURO Hx Neuro Disorders: No - GI Hx GI Disorders: Yes Comment:: gastroporesis - Hx Genitourinary Disorders: Yes Hx Kidney Stones: Yes - ENDOCRINE Hx Endocrine Disorders: No Hx Diabetes: No Hx Thyroid Disease: No - MUSCULOSKELETAL Hx Musculoskeletal Disorders: No - PSYCH Hx Psych Problems: No - HEMATOLOGY/ONCOLOGY Hx Hematology/Oncology Disorders: No Family Medical History Any Significant Family History?: Yes Hx Cancer: Mother, Brother/Sister Hx Diabetes: Brother/Sister Hx Stroke: Father, Brother/Sister Physical Exam - General General Appearance: Alert, Oriented x3, Cooperative, Mild distress - Head Head exam: Normal inspection - Eye Eye exam: Normal appearance, PERRL, EOMI Pupils: Normal accommodation - ENT ENT exam: Normal exam, Mucous membranes moist, Normal external ear exam, Normal orophraynx Ear exam: Normal external inspection. negative: External canal tenderness Nasal Exam: Normal inspection, Active bleeding, Dried blood. negative: Sinus tenderness Mouth exam: Normal external inspection, Tongue normal Teeth exam: Normal inspection. negative: Dental caries Throat exam: Normal inspection. negative: Tonsillar erythema, Tonsillar exudate - Neck Neck exam: Normal inspection, Full ROM. negative: Tenderness - Respiratory Respiratory exam: Normal lung sounds bilaterally. negative: Respiratory distress - Cardiovascular Cardiovascular Exam: Regular rate, Normal rhythm, Normal heart sounds - GI/Abdominal GI/Abdominal exam: Soft, Normal bowel sounds. negative: Tenderness - Rectal Rectal exam: Deferred - exam: Deferred - Extremities Extremities exam: Normal inspection, Full ROM, Normal capillary refill. negative: Tenderness - Back Back exam: Reports: Normal inspection, Full ROM. Denies: Muscle spasm, Rash noted, Tenderness - Neurological Neurological exam: Alert, Normal gait, Oriented X3, Reflexes normal - Psychiatric Psychiatric exam: Normal affect, Normal mood - Skin Skin exam: Dry, Intact, Normal color, Warm Course Vital Signs 11/17/17 22:43 Temperature 98.2 F Pulse Rate [ 85 Pulse Ox Probe] Respiratory 16 Rate Blood Pressure 144/86 [Left Arm] Pulse Ox 97 - Reevaluation(s) Reevaluation #1: 11/18/17 00:46 viscous lido used then rhino rocket. pt refused to have both nares packed Medical Decision Making - Lab Data Result diagrams: 11/17/17 23:45 11/17/17 23:45 Disposition Disposition: Discharge Clinical Impression: Epistaxis Disposition: Home, Self-Care Condition: (1) Good Instructions: Nosebleed (ED) Additional Instructions: follow up with ent tomorrow Prescriptions: Hydrocodone/Acetaminophen [Gibbon 5-325 Tablet] 1 each PO Q6HR #7 tablet Amoxicillin/Potassium Clav [Augmentin 875Mg/125Mg] 1 tab PO BID #14 tablet Forms: Patient Portal Access Quality - Quality Measures Quality Measures: N/A - Blood Pressure Screening Does Patient Have Any of the Following: No Blood Pressure Classification: Hypertensive Reading Systolic Measurement: 120 Diastolic Measurement: 94 Screening for High Blood Pressure: < Pre-Hypertensive BP, F/U Documented > [ G8950] Pre-Hypertensive Follow-up Interventions: Follow-up with rescreen every year.
[2017-11-17 23:51] LABS: BASO % 0.2 % (0-6); EOS % 1.6 % (0-6); GRAN % 69.9 % (47-80); HEMATOCRIT 37.5 % (42.0-52.0); HEMOGLOBIN 12.8 gm/dl (14.0-18.0); LYMPH % 21.8 % (16-45); MEAN CELL VOLUME 89.5 fl (81-97); MEAN CORPUSCULAR HEMOGLOBIN 30.5 pg (27-33); MEAN CORPUSCULAR HGB CONC 34.1 g/dl (32-36); MEAN PLATELET VOLUME 9.4 fl (7.4-10.4); MONO % 6.5 % (0-9); PLATELET COUNT 221 K/uL (130-400); RED BLOOD COUNT 4.19 M/uL (4.40-5.70); RED CELL DISTRIBUTION WIDTH 12.4 % (11.5-14.5); WHITE BLOOD COUNT W/O DIFF 5.6 K/uL (4.2-12.2)
[2017-11-18 00:09] LABS: BLOOD UREA NITROGEN 26 mg/dL (8-23); EST GLOMERULAR FILTRATION RATE > 60 mL/min; GLUCOSE,RANDOM 204 mg/dL (74-109)
[2017-11-18] MEDS ORDERED: AMOXICILLIN/POTASSIUM CLAV 875MG/125MG TABLET PO ONE (00:47)
[2017-11-18] MEDS ORDERED: HYDROCODONE/APAP 5/325MG TABLET PO ONE (00:48)
== END 2017-11-18 01:05 | disposition home or self-care (01) ==
LOC: ER 22:30
DX: R04.0 Epistaxis (principal); R53.1 Weakness; I10 Essential (primary) hypertension; Z87.891 Personal history of nicotine dependence
CPT/HCPCS: 30901; 80048; 85025; 99283